=== PATIENT | female | born 1960 | race Caucasian/White ===

== ENCOUNTER → 2017-08-12 | Emergency (ER) | payer OTHER ==
[~2017-08-12] VITALS: Ht 160 cm; Wt 74.8 kg
[~2017-08-12] MED LIST: ADULT ASPIRIN81 MG PO; ALDACTONE50 MG PO; ESOMEPRAZOLE MA20 MG PO; FUROSEMIDE20 MG PO; SOTALOL120 MG PO; ULTRAM50 MG PO; [UNRECOGNIZED DRUG - OTHER] PO
== END | disposition home or self-care (01) ==
LOC: ER 17:31
DX: J06.9 Acute upper respiratory infection, unspecified (principal)